=== PATIENT | female | born 1950 | race Caucasian/White ===

== ENCOUNTER 2018-12-31 08:42 | Inpatient (IN) ==
--- NOTE | 2018-12-05 11:16 | PAT Medication Instructions ---
Medication Instructions Date of Service December 05, 2018 Home Medications ascorbic acid (vitamin C) 250 mg PO QAM calcium carbonate [Calcium 500] 1,500 mg PO DAILY meloxicam 15 mg PO HS metronidazole 1 applic TOPICAL DAILY PRN potassium gluconate 595 mg PO QAM pyridoxine (vitamin B6) 50 mg PO QAM ranitidine HCl 150 mg PO BID triamcinolone acetonide 1 applic TOPICAL DAILY PRN vitamin B complex 1 cap PO QDL [Multivitamin 50 Plus] 1 tab PO BID ASK your surgeon for instructions meloxicam 15 mg PO HS STOP taking 24 hours before surgery triamcinolone acetonide 1 applic TOPICAL DAILY PRN DO NOT take the morning of surgery ascorbic acid (vitamin C) 250 mg PO QAM calcium carbonate [Calcium 500] 1,500 mg PO DAILY potassium gluconate 595 mg PO QAM pyridoxine (vitamin B6) 50 mg PO QAM vitamin B complex 1 cap PO QDL [Multivitamin 50 Plus] 1 tab PO BID Take morning of surgery With a small sip of water, OTHERWISE NOTHING TO EAT OR DRINK AFTER MIDNIGHT: ranitidine HCl 150 mg PO BID Other Notes If you have any questions please call us at [phone] or [phone] or [phone] or [phone]
--- NOTE | 2018-12-05 12:00 | Anesthesiology Consultation ---
Date of Service December 05, 2018 Assessment & Plan (1) Encounter for pre-operative examination: - No previous anesthesia records. Chart Review Chart Review: Acceptable Risk for Surgery and Patient seen in Pre Admission Testing Consults Requested medical (Tina Donis PA-C (12/22)) Patient was seen by PCPs office for preoperative evaluation on 12/22/18. Per note from visit that day, patient is "Clinically stable for surgery". Teaching & Discussion Pre-Anesthesia Teaching/Discussion Notes: Instructed NPO after midnight before surgery, except medications with 15 cc of water. Medication instructions provided according to the PAT guidelines. History Surgery Operation Date: 12/31/18 07:30 Proposed Procedures p Left Total Knee Arthroplasty - Chilo Chu MD Height/Weight Height: 5 ft 5 in Weight: 82.9 kg Allergies Allergy/AdvReac Type Severity Reaction Status Date / Time No Known Allergies Allergy Verified 11/26/18 08:35 Medications Home Medications Medication Instructions Recorded Confirmed Last Taken ascorbic acid (vitamin C) [Vitamin 250 mg PO QAM 09/11/18 11/26/18 Unknown C] calcium carbonate [Calcium 500] 1,500 mg PO DAILY 09/11/18 11/26/18 Unknown meloxicam 15 mg PO HS 09/11/18 11/26/18 Unknown metronidazole 1 applic TOPICAL DAILY PRN 09/11/18 11/26/18 Unknown potassium gluconate 595 mg PO QAM 09/11/18 11/26/18 Unknown pyridoxine (vitamin B6) [Vitamin 50 mg PO QAM 09/11/18 11/26/18 Unknown B-6] ranitidine HCl 150 mg PO BID 09/11/18 11/26/18 Unknown triamcinolone acetonide 1 applic TOPICAL DAILY PRN 09/11/18 11/26/18 Unknown vitamin B complex 1 cap PO QDL 09/11/18 11/26/18 Unknown [id number] 1 tab PO BID 11/26/18 11/26/18 Unknown [Multivitamin 50 Plus] Past Medical History Medical History Acid reflux History of kidney stones Osteoarthritis Rosacea Exercise / Class Metabolic Activity II 4-5 Yardwork/Stairs/Walk up hill (Helping redo bathroom and can cut grass. Able to climb FOS. Denies CP or SOB.) Past Family History Family History Father Family history of bladder cancer Aunt Family history of breast cancer Other Family history of prostate cancer in father Past Surgical History Surgical History History of colonoscopy History of laparoscopic cholecystectomy History of urologic surgery LASER KIDNEY STONE Past Anesthesia History No Hx of Anesthesia Complications and No Family Hx of Anesthesia Complications History of PONV No Hx of PONV and No Hx of Motion Sickness Social History Smoking Status: Never smoker Do You Dip or Chew Tobacco: No Hx Alcohol Use: No Hx Substance Use: No substance use type: does not use Review of Systems Patient denies chest pain, shortness of breath, dyspnea on exertion, cough, wheezing, palpitations. +Joint Pain (Knees, right arm) +Acid reflux (controlled with current medications) +Heart palpitations (caffeine related) Physical Exam Vital Signs BP: 149/79 P: 69 R: 18 T: 98.0 SPO2: 97% on RA ENMT Thyromental Distance: > or= 3.5 Finger Breadths (4) Mallampati Class: II Neck normal visual inspection and trachea midline; neck extension not limited Respiratory normal respiratory effort Auscultation: lungs clear to auscultation bilaterally Cardiovascular Rate/Rhythm: regular rate and regular rhythm Heart Sounds: no murmur Vessels: no carotid bruit Neurologic moves all extremities Psychiatric Orientation: alert and oriented x 3 Testing Laboratory Results 12/05/18 12:17 12/05/18 12:17 PT 11.0 Seconds (9.0-12.0) 12/05/18 12:17 INR 1.1 (0.9-1.1) 12/05/18 12:17 APTT 28.1 Seconds (21.0-31.0) 12/05/18 12:17 Hemoglobin A1c 5.9 % (4.5-5.6) H 12/05/18 12:17 Urine Color Yellow 12/05/18 12:17 Urine Appearance Clear (Clear) 12/05/18 12:17 Urine pH 7.5 (4.5-7.5) 12/05/18 12:17 Ur Specific Boles 1.023 (1.000-1.030) 12/05/18 12:17 Urine Protein Negative (Negative) 12/05/18 12:17 Urine Glucose (UA) Negative (Negative) 12/05/18 12:17 Urine Ketones Negative (Negative) 12/05/18 12:17 Urine Nitrite Negative (Negative) 12/05/18 12:17 Ur Leukocyte Esterase Negative (Negative) 12/05/18 12:17 Blood Type A Positive 12/05/18 12:17 Antibody Screen NEGATIVE 12/05/18 12:17 Electrocardiogram Date: 12/05/18 Findings: + SB @ (56) Chest X-Ray Date: 12/05/18 Findings: + NAD
--- NOTE | 2018-12-05 12:47 | XRay Report ---
XR chest Pre-admission PA/Lat CLINICAL HISTORY: Preoperative chest COMPARISON STUDY: No previous studies for comparison. FINDINGS: The cardiac and mediastinal contours are normal. There is no evidence of focal pulmonary co nsolidation. There is no evidence of failure. No pleural effusions are visualized.[ IMPRESSION: No active disease in the chest. Electronically signed by: Jaciel Van M.D. 12/05/2018 12:45 PM
[2018-12-05 13:00] LABS: Basophils # (auto) 0.03 K/uL (0-0.2); Basophils % (auto) 0.5 %; Eosinophils # (auto) 0.03 K/uL (0-0.5); Eosinophils % (auto) 0.5 %; Hematocrit (blood only) 40.3 % (37-47); Hemoglobin 13.6 g/dL (12.0-16.0); Immature Granulocytes # (auto) 0.01 K/uL (0.00-0.02); Immature Granulocytes % (auto) 0.2 %; Lymphocytes # (auto) 1.65 K/uL (1.2-3.4); Lymphocytes % (auto) 26.6 %; Mean Corpuscular Hgb Conc 33.7 g/dL (32-36); Mean Corpuscular Volume 90.2 fL (80-100); Mean Platelet Volume 9.5 fL (7.4-10.4); Monocytes # (auto) 0.45 K/uL (0.11-0.59); Monocytes % (auto) 7.3 %; Neutrophils # (auto) 4.03 K/uL (1.4-6.5); Neutrophils % (auto) 64.9 %; Platelet Count 256 K/uL (130-400); RDW Coefficient of Variation 14.2 % (11.5-14.5); RDW Standard Deviation 46.9 fL (36.4-46.3); Red Blood Count 4.47 M/uL (4.2-5.4)
[2018-12-05 13:14] LABS: INR 1.1 (0.9-1.1); Partial Thromboplastin Time 28.1 Seconds (21.0-31.0)
[2018-12-05 13:15] LABS: Albumin Level 3.7 gm/dl (3.4-5.0); BUN Creatinine Ratio 31.6 (10-20); Calcium 9.3 mg/dl (8.5-10.1); Creatinine Clr Calc Pharmacy 69.9 ml/min; Est GFR (African American) 84.6; Potassium 3.9 mmol/L (3.5-5.1)
[2018-12-05 13:28] LABS: Estimated Average Glucose 123 mg/dl; Hemoglobin A1C 5.9 % (4.5-5.6)
[2018-12-05 13:34] LABS: Appearance Urine Clear (Clear); Bilirubin Urine Negative (Negative); Blood Urine Negative (Negative); Color Urine Yellow; Glucose Urine UA Negative (Negative); Ketones Urine Negative (Negative); Leukocyte Esterase Urine Negative (Negative); Nitrite Urine Negative (Negative); Protein Urine Negative (Negative); Specific Gravity Urine 1.023 (1.000-1.030); Urobilinogen Urine Negative (Negative); pH Urine 7.5 (4.5-7.5)
--- NOTE | 2018-12-31 00:39 | History and Physical Report ---
DATE OF ADMISSION: 12/31/2018 CHIEF COMPLAINT: Chronic left knee pain. HISTORY OF PRESENT ILLNESS: This is a 68-year-old female patient of Dr. Moser, complaining of chronic left knee pain, longstanding, now progressively getting worse. The patient has failed conservative treatment including anti-inflammatories and the use of a home exercise program. The patient has increased pain with weightbearing activities. Her pain does interfere with her activities of daily living. The patient has been diagnosed with end-stage osteoarthritis per clinical and radiographic exams and wishes to proceed with a left total knee arthroplasty. PAST MEDICAL HISTORY: Osteoarthritis, acid reflux, kidney stones, otherwise a healthy 68-year-old female. PAST SURGICAL HISTORY: Cholecystectomy, kidney stones. SOCIAL HISTORY: Nonsmoker, nondrinker. FAMILY HISTORY: Noncontributory. REVIEW OF SYSTEMS: Chronic left knee pain and instability. Otherwise, denies any shortness of breath, chest pain, nausea, vomiting or any other joint complaints. PHYSICAL EXAMINATION: GENERAL: Well-developed, well-nourished 68-year-old female in no acute distress. She is alert and oriented x3 and pleasant. HEENT: Normocephalic, atraumatic. Extraocular motions are intact. Pupils are equal and reactive to light. HEART: Regular rate and rhythm, no murmurs. LUNGS: Clear. ABDOMEN: Soft, nontender, bowel sounds present. EXTREMITIES: Left knee reveals a limited range of motion of 0-115 degrees. She has medial joint line tenderness with a varus deformity. She has 5/5 strength with pain. NEUROLOGIC: Neurovascularly, she is intact in the left lower extremity. DIAGNOSES: Left knee end-stage osteoarthritis, acid reflux, history of kidney stones. PLAN: The patient was advised of her diagnosis. Indications, risks, benefits, postop course have all been reviewed. The patient wished to proceed with a left total knee arthroplasty. Necessary consent forms, preoperative testing and clearances will be obtained.
[~2018-12-31 08:42] MED LIST: ACETAMINOPHEN 500 MG TAB PO SCH; ATROPINE SULFATE 0.1 MG/ML 10ML SYR IV PRN; BUPIVACAINE 0.5 % 5 MG/1 ML PF 10ML VIAL ONE; CEFAZOLIN 2000MG 2,000 MG/15 ML SYR IV SCH; CeleBREX 200 MG CAP PO SCH; FAMOTIDINE 20 MG TAB PO SCH; GABAPENTIN 300 MG CAP PO SCH; LR 500ML BOLUS, THEN 15ML/HR IV SCH; METOCLOPRAMIDE HCL 10 MG TABLET PO SCH; MIDAZOLAM HCL 1 MG/ML 2ML VIAL ONE; ONDANSETRON INJ 2 MG/ML 2 ML VIAL IV PRN; ROPIVACAINE 0.5% 5 MG/ML 30 ML VIAL ONE; ROPIVACAINE 0.5% HCL/PF 150 MG, BUPIVACAINE 0.5% MPF 30 ML, EPINEPHrine 30MG/30ML (OR U... INSTIL SCH; TRANEXAMIC ACID 1,000 MG **IV Intra-op IV SCH; TRANEXAMIC ACID 1,000 MG **IV Pre-op IV SCH; dexAMETHasone 4 MG TAB PO SCH; ePHEDrine sulfate 50 MG/ML AMP IV PRN; fentaNYL citrate 100 MCG/2 ML VIAL IV PRN; fentaNYL citrate 100 MCG/2 ML VIAL ONE
--- NOTE | 2018-12-31 09:40 | History & Physical Bridge Note ---
Date of Service December 31, 2018 History & Physical Bridge Note I have examined the patient, reviewed the History & Physical and in the interval since the performance of the History & Physical I have noted the following changes of clinical significance: no changes noted
[2018-12-31] MEDS ORDERED: PROPOFOL IV EMULSION 10 MG/ML 20 ML VIAL IV ONE (11:52)
[2018-12-31] MEDS ORDERED: ONDANSETRON INJ 2 MG/ML 2 ML VIAL ONE (11:52)
[2018-12-31] MEDS ORDERED: LIDOCAINE HCL 2% 2 ML VIAL/AMP(20MG/ML) INFIL ONE (11:52)
[2018-12-31] MEDS ORDERED: ORTHO JOINT ANESTHETIC ONE (12:16)
[2018-12-31] MEDS ORDERED: BACITRACIN INJ 50,000 UNIT VIAL ONE (12:16)
--- NOTE | 2018-12-31 13:54 | Post Operative Brief Note ---
Immediate Post Op Note v1 Date of Surgery December 31, 2018 Pre & Post Diagnosis Operation Date: 12/31/18 11:20 Pre-Op Diagnosis: Left Knee Osteoarthritis Post-Op Diagnosis: Left Knee Osteoarthritis Procedure Operation Date: 12/31/18 11:20 Actual Procedures p Left Total Knee Arthroplasty(Left) - Chilo Chu MD Surgeon Chilo Chu MD Fiberglass Grinder Leo BOURGEOIS Estimated Blood Loss 5 Findings Consistent with Post-Op Diagnosis Specimens Bone cuts Drains Hemovac Drain (dual trocar) Anesthesia Type MAC Spinal Regional Complications none Disposition Accompanied Patient To Recovery: No Disposition: Recovery Room Overlapping Procedure I was immediately available: during the entire case.
--- NOTE | 2018-12-31 14:12 | Operative Report ---
Post Operative Report Pre & Post Diagnosis Operation Date: 12/31/18 11:20 Pre-Op Diagnosis: Left Knee Osteoarthritis Post-Op Diagnosis: Left Knee Osteoarthritis Procedure Operation Date: 12/31/18 11:20 Actual Procedures p Left Total Knee Arthroplasty(Left) - Chilo Chu MD Surgeon Chilo Chu MD Operations Research Manager Leo BOURGEOIS Estimated Blood Loss 5 Findings Consistent with Post-Op Diagnosis Specimens Bone cuts Drains 2 Hemovac Anesthesia Type MAC Spinal Regional Complications none Disposition Accompanied Patient To Recovery: No Disposition: Recovery Room Indications 68-year-old female with chronic left knee pain failed conservative management. Radiographs demonstrate that she is lyxy-ln-jpha medial compartment and flexion views she is kqbz-[id number] patellofemoral joint medial compartment. Patient had extensive conservative management without relief. Description of Procedure Patient taken to the operating room the size under spinal MAC regional block anesthesia. Patient was placed supine on the operating table. A pneumatic tourniquet was placed about the left upper thigh. The left lower extremity was prepped and draped in sterile fashion. Knee exam demonstrated good range of motion patellofemoral crepitation no instability varus knee alignment. The leg was elevated exsanguinated with an Esmarch bandage and pneumatic tourniquet was raised to 325 millimeters of mercury. Skin incised sharply in longitudinal fashion. Subcutaneous flaps elevated. Incision was made through the medial retinaculum extending up in the mid third of the quadriceps tendon and down to the medial tibial tubercle. Intra-articular findings demonstrated tricompartmental osteoarthritis. There is grade 4 medial compartment OA there was grade 3-4 chondral lesion lateral femoral condyle there was grade 4 patellofemoral osteoarthritis in the medial compartment patellofemoral joint medial facet patella. The Turbogen triathlon total knee arthroplasty system was used. To expose the knee the infrapatellar fat pad was resected. The meniscal remnants and cruciate ligaments were resected. The anterior fat pad over the femur in the area of the anterior flange of the femoral component was resected. Lateral synovial bands release. The femur was exposed. An intramedullary drill hole was made into the canal. A guide jarod was placed. Distal femoral cutting guide was adjusted to resect a 5 degree valgus cut with a millimeters distal femur resected. The knee was extended and a subperiosteal peel lateral release was performed around the patella. Patella width was measured and width was reproduced using a freehand cut technique and a 33 x 9 patella component. The 3 drill holes were made and the excess lateral facet was beveled off to prevent any impingement. Attention was taken back to the femur which was exposed with retractors and the femoral sizing guide was pinned in position. The drill holes were placed in 3 of external rotation to match epicondylar axis. In order not to notch we used a +1.5 mm adjustment guide placing the cutting guide more anterior. Femur sized for a 4 component. The 4-in-1 cutting block was placed and then the anterior posterior and chamfer cuts are made. The tibia was then subluxed. The external tibial cutting guide was just to make a perpendicular cut to the long axis of the tibia below the most deficient bone loss side. A lamina store consultant was used and the flexion extension gaps were balanced. All posterior osteophytes removed. All meniscal remnants were resected. The tibia exposed and the trial tibial component size 3 was externally rotated in line with the tibial tubercle and pinned in position. The punch for stem was used. The notch cutting device was centered appropriately and the femoral notch cut was made. The femoral trial was inserted. Trial tibial inserts were placed and size 11 gave balanced ligaments through flexion and extension. Patella tracking was assessed. The patella tracked centrally. The trial components were then removed and the orthomix anesthetic cocktail was injected per protocol. The knee was then copiously irrigated with pulsatile lavage antibiotic solution. Final components were then cemented with Simplex cement. Final components were Julianne triathlon size 4 left posterior stabilized femoral component, 3 primary tibial baseplate, 3 x 11 mm X3 polyethylene tibial insert, X3S 33 x 9 mm symmetrical patella. While the cement cured the Betadine soak was used per protocol. After cement cured further pulsatile lavage irrigation performed and 2 Hemovac drains were brought out laterally. The quadriceps tendon and medial retinaculum were closed with figure of 8 #1 Vicryl sutures. The knee was taken through full range of motion and the repair was secure. The subcutaneous tissues were closed with 2-0 Vicryl sutures. Skin was closed with curly. Sterile dressings were applied. Patient procedure well. Leo BOURGEOIS was my physician mortgage assistant who assisted in patient positioning prepping and draping,leg positioning ,soft tissue retraction and instrument management and participated in the closing and will participate in postoperative care of the patient. The patient tolerated the procedure well. I attest to the content of the Intraoperative Record and any orders documented therein. Any exceptions are noted below.
--- NOTE | 2018-12-31 14:40 | XRay Report ---
LEFT KNEE 2 VIEWS History: Left total knee arthroplasty. Degenerative arthritis. Postop. FINDINGS: The patient is status post a left total knee arthroplasty. The hardware is intact. No fract ure or dislocation. Skin curly and surgical drains are in place. IMPRESSION: Left total knee arthroplasty. No evidence for hardware complication. Electronically signed by: Logan Oliveira M.D. 12/31/2018 2:39 PM
--- NOTE | 2018-12-31 16:51 | Anesthesiology Progress Note ---
Date of Service December 31, 2018 Anesthesia Post Procedure Vital Signs Vital Signs: Temp Pulse Pulse Resp BP Pulse Ox 12/31/18 16:20 36.3 C L 67 17 120/54 L 98 12/31/18 16:10 73 14 124/53 L 99 12/31/18 16:00 71 17 119/67 97 12/31/18 15:50 85 15 121/81 99 12/31/18 15:40 69 17 109/62 99 12/31/18 15:30 36.6 C 76 18 120/68 99 12/31/18 15:20 69 20 105/62 98 12/31/18 15:10 65 12 108/55 L 99 12/31/18 15:00 67 15 102/54 L 100 12/31/18 14:50 63 17 108/47 L 99 12/31/18 14:40 65 16 118/49 L 98 12/31/18 14:30 65 13 106/56 L 99 12/31/18 14:20 72 22 113/59 L 98 12/31/18 14:10 72 16 111/52 L 100 12/31/18 14:00 36.5 C 81 18 122/54 L 100 12/31/18 09:29 36.7 C 71 16 154/64 H 98 Transfer of Care Handoff Completed per policy Notes Mental Status: alert / awake / arousable Patient Amnestic to Procedure: Yes Nausea / Vomiting: adequately controlled Pain: adequately controlled Airway Patency, RR, SpO2: stable & adequate BP & HR: stable & adequate Hydration State: stable & adequate Neuraxial Anesthesia: was administered and sensory block is resolving Anesthetic Complications: no major complications apparent and Pt Satisfied with anesthetic care
[2018-12-31] MEDS ORDERED: TRIAMCINOLONE ACET 0.1% OINT 15 GM TUBE TOP PRN (17:02)
[2018-12-31] MEDS ORDERED: HYDROmorphone INJ 0.5 MG/0.5 ML SYR IV PRN (17:02)
[2018-12-31] MEDS ORDERED: BISACODYL 10 MG SUPP PR PRN (17:02)
[2018-12-31] MEDS ORDERED: NALOXONE HCL 0.4 MG/1 ML VIAL/CARP IV PRN (17:02)
[2018-12-31] MEDS ORDERED: MAGNESIUM HYDROXIDE SUSP 30 ML UDC PO PRN (17:02)
[2018-12-31] MEDS ORDERED: ONDANSETRON INJ 2 MG/ML 2 ML VIAL IV PRN (17:02)
[2018-12-31] MEDS: ACETAMINOPHEN 500 MG TAB PO SCH (17:36)
[2018-12-31] MEDS: SODIUM CHLORIDE 0.9% 1000ML 1,000 ML IV SCH (17:41)
--- NOTE | 2018-12-31 19:38 | Consultation ---
Date of Consultation December 31, 2018 Assessment & Plan (1) Arthritis of knee: left, s/p TKR today. Resting comfortably post-op. Defer pain control, fluids, dispo to orthopedics. DVT proph- asa 81mg BID. Present on Admission?: Yes (2) Prediabetes: a1c on 12/05/18 was 5.9%. I counseled her on significance of this. Random blood sugar taken at 1930 tonight was nearly 180. Some of the elevation is likely due to steroids given earlier today in the setting of her pre-DM. Change diet to DM diet. Check BSGs ac/hs. Just changing diet alone may control the BSGs. Will add loose coverage of novolog as well. Present on Admission?: Yes (3) Acid reflux: Cont ranitidine 150mg BID. No symptoms at this time. Present on Admission?: Yes (4) DVT prophylaxis: It appears orthopedics has chosen aspirin 81mg twice daily. Thank you for this consult. We will follow with you. History of Present Illness Requesting Physician: Dr Chilo Chu Reason for Consultation: post-op medical management Attending Physician: Chilo Chu MD History of Present Illness 68yo remale with h/o atopic dermatitis, GERD, osteoarthritis of various sites, and rosacea who presented today for elective right TKR. She underwent this procedure earlier today by Dr Chu and her surgery went well & without complications. She was resting comfortably on the orthopedic floor during my assessment. Her main pre-hospital complaint was that of plantar fascitis and b/l wrist pain. Since stopping her meloxicam 1 week before the operation her wrist pain had been worse. Denies chest pain, dyspnea, abd pain, nausea or emesis. Ate dinner tonight without incident. Random BSG at 1930 was 179. Allergies Allergy/AdvReac Type Severity Reaction Status Date / Time No Known Allergies Allergy Verified 12/31/18 09:25 Home Medications Home Medications Medication Instructions Recorded Confirmed Type ascorbic acid (vitamin C) [Vitamin 250 mg PO QAM 09/11/18 12/31/18 History C] calcium carbonate [Calcium 500] 1,500 mg PO DAILY 09/11/18 12/31/18 History meloxicam 15 mg PO HS 09/11/18 12/31/18 History metronidazole 1 applic TOPICAL DAILY PRN 09/11/18 12/31/18 History potassium gluconate 595 mg PO QAM 09/11/18 12/31/18 History pyridoxine (vitamin B6) [Vitamin 50 mg PO QAM 09/11/18 12/31/18 History B-6] ranitidine HCl 150 mg PO BID 09/11/18 12/31/18 History triamcinolone acetonide 1 applic TOPICAL DAILY PRN 09/11/18 12/31/18 History vitamin B complex 1 cap PO QDL 09/11/18 12/31/18 History tmzrrmwbkpuu-fjudqjqa-pkzxlx 1 tab PO BID 11/26/18 12/31/18 History [Multivitamin 50 Plus] Patient History Medical History Acid reflux (Chronic) Prediabetes (Chronic) History of kidney stones Osteoarthritis Rosacea Surgical History History of colonoscopy History of laparoscopic cholecystectomy History of urologic surgery LASER KIDNEY STONE Family History Father Family history of bladder cancer Heart disease CAD, s/p CABG; age 69 Aunt Family history of breast cancer Mother , age 97 Valvular heart disease Other Family history of prostate cancer in father Social History Preferred Language: Lao Communication Ability: Effective Supervisor Boarding Required: No Beliefs That Will Affect Care: None marital status: Current Living Situation: Spouse Current Living Situation Comment: lives in [place] current occupational status: retired 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 Other Information That Helps Us Care for You: No Feels Safe at Home: Yes Safety Concerns: Feels Safe At This Time Smoking Status: Never smoker Do You Dip or Chew Tobacco: No Second Hand Exposure: No Hx Alcohol Use: No Hx Substance Use: No Review of Systems Constitutional: no fever, no chills and no anorexia Ear, Nose, Mouth, Throat: + sore throat (post-op only); no dysphagia Respiratory: no cough and no dyspnea Cardiovascular: no chest pain Gastrointestinal: no abdominal pain, no nausea and no vomiting Genitourinary: no hematuria Musculoskeletal: as per Subjective / HPI and + joint pain Integumentary: + rash (atopic derm rashes at times) Neurologic: + numbness (left leg - from operative block) Psychiatric: no depression Endocrine: pre-DM - she was not aware of such Physical Exam Constitutional: well developed, well nourished and average body habitus; no acute distress and no altered mental status Eyes: PERRL ENMT: external ear and nose normal, oropharynx normal Respiratory: normal respiratory effort, lungs clear to auscultation Cardiovascular: Rate/Rhythm: regular rate and regular rhythm Heart Sounds: normal S1, normal S2 and + murmur (1/6 LLSB) Vessels: posterior tibial pulses present and brachial pulses present; no JVD Extremities: no edema Gastrointestinal (Abdomen): normal bowel sounds, soft, nontender, no hepatosplenomegaly Musculoskeletal: left knee with ice pack in place and RASHEL wrap Skin: no rashes, warm and dry Neurologic: no focal motor deficits Psychiatric: A+Ox3, euthymic affect Lymphatic: no cervical lymphadenopathy Results & Data Vital Signs (Past 12 Hours) Vital Signs Temp Pulse Pulse Resp BP Pulse Ox 12/31/18 18:47 83 17 131/75 97 12/31/18 17:45 37 C 78 18 137/81 95 12/31/18 17:15 36.4 C L 65 16 126/80 98 12/31/18 16:45 36.9 C 68 16 114/71 100 12/31/18 16:20 36.3 C L 67 17 120/54 L 98 12/31/18 16:10 73 14 124/53 L 99 12/31/18 16:00 71 17 119/67 97 12/31/18 15:50 85 15 121/81 99 12/31/18 15:40 69 17 109/62 99 12/31/18 15:30 36.6 C 76 18 120/68 99 12/31/18 15:20 69 20 105/62 98 12/31/18 15:10 65 12 108/55 L 99 12/31/18 15:00 67 15 102/54 L 100 12/31/18 14:50 63 17 108/47 L 99 12/31/18 14:40 65 16 118/49 L 98 12/31/18 14:30 65 13 106/56 L 99 12/31/18 14:20 72 22 113/59 L 98 12/31/18 14:10 72 16 111/52 L 100 12/31/18 14:00 36.5 C 81 18 122/54 L 100 12/31/18 09:29 36.7 C 71 16 154/64 H 98 Laboratory Results 12/05/18 - CBC, BMP wnl HbA1c 5.9% Diagnostic Findings cxr - earlier this month - no acute process EKG - sinus doug, no ST changes PG Care Time/CCT Total # of Minutes Spent Total Time Spent with Patient: Total time spent is greater than 50% in coordination of care (as documented) at patient's floor/unit and/or counseling patient: (1) Acid reflux Esophagitis presence: esophagitis presence not specified Qualified Code(s): K21.9 - Gastro-esophageal reflux disease without esophagitis
[2018-12-31] MEDS: CEFAZOLIN 2000MG 2,000 MG/15 ML SYR IV SCH (20:24)
[2018-12-31] MEDS: ASPIRIN 81 MG ECTAB PO SCH (20:24)
[2018-12-31] MEDS: DOCUSATE SODIUM 100 MG CAP PO SCH (20:24)
[2018-12-31] MEDS: SENNA 8.6 MG TAB PO SCH (20:24)
[2018-12-31] MEDS: CeleBREX 200 MG CAP PO SCH (20:39)
[2018-12-31] MEDS ORDERED: MULTIVITAMIN MINERALS LUTEIN PO SCH (21:00)
[2019-01-01] MEDS: OXYCODONE HCL IR 5 MG TAB (IMMEDIATE RELEASE) PO PRN ×5 (00:46→21:55)
[2019-01-01] MEDS: ACETAMINOPHEN 500 MG TAB PO SCH ×3 (02:11→18:02)
[2019-01-01] MEDS: CEFAZOLIN 2000MG 2,000 MG/15 ML SYR IV SCH (04:29)
[2019-01-01] MEDS: SODIUM CHLORIDE 0.9% 1000ML 1,000 ML IV SCH (04:31)
[2019-01-01 06:43] LABS: Hematocrit (blood only) 34.1 % (37-47); Hemoglobin 11.6 g/dL (12.0-16.0); Mean Corpuscular Volume 87.9 fL (80-100); Mean Platelet Volume 9.1 fL (7.4-10.4); Platelet Count 199 K/uL (130-400); RDW Coefficient of Variation 13.9 % (11.5-14.5); Red Blood Count 3.88 M/uL (4.2-5.4); White Blood Count 13.21 K/uL (4.8-10.8)
[2019-01-01 07:21] LABS: BUN Creatinine Ratio 25.4 (10-20); Calcium 8.2 mg/dl (8.5-10.1); Est GFR (African American) 78.8; Potassium 4.3 mmol/L (3.5-5.1)
--- NOTE | 2019-01-01 08:07 | Orthopedic Progress Note ---
Date of Service January 01, 2019 Assessment & Plan (1) Total knee replacement status: Status post total knee replacement left knee expected progress. PT pain management and planning on home health home PT for 2 weeks then outpatient physical therapy Subjective No complaints doing well Physical Exam Physical Exam: Mild weakness left foot improving with nerve block wearing off otherwise CSM intact. Dressing dry and intact. Results & Data Vital Signs (Past 12 Hours) Vital Signs Temp Pulse Resp BP Pulse Ox 01/01/19 06:56 36.4 C L 62 18 136/76 96 01/01/19 03:50 36.4 C L 64 16 120/72 95 12/31/18 23:13 36.8 C 68 16 126/70 94
[2019-01-01] MEDS: CeleBREX 200 MG CAP PO SCH ×2 (08:41→20:13)
[2019-01-01] MEDS: ASCORBIC ACID 500 MG TAB PO SCH (08:41)
[2019-01-01] MEDS: DOCUSATE SODIUM 100 MG CAP PO SCH ×2 (08:41→20:12)
[2019-01-01] MEDS: MULTIVITAMIN TAB PO SCH (08:42)
[2019-01-01] MEDS: ASPIRIN 81 MG ECTAB PO SCH ×2 (08:42→20:13)
[2019-01-01] MEDS: PYRIDOXINE HCL 50 MG TAB PO SCH (08:42)
[2019-01-01] MEDS: CALCIUM CARBONATE 1250MG TAB PO SCH (08:42)
--- NOTE | 2019-01-01 10:57 | Hospitalist Progress Note ---
Date of Service January 01, 2019 Assessment & Plan (1) Arthritis of knee: left, s/p TKR, POD #1. Stable labs, acceptable vitals, and BSGs improving. Defer pain control and dispo to orthopedics. DVT proph- asa 81mg BID. (2) Prediabetes: a1c on 12/05/18 was 5.9%. I counseled her on significance of this. Some of the elevation was likely due to steroids given pre-op. Her BSGs have improved with time and changing her diet to T2DM diet. If BSGs continue to drop to normal range can d/c ac/hs checks. I offered for her to be seen by health lead for nutritional counseling, etc -- she was agreeable. Consult placed. (3) Acid reflux: Cont ranitidine 150mg BID. (4) Acute blood loss anemia: Mild, would start Ferrous sulfate at d/c (325mg BID x 1-2 months). (5) DVT prophylaxis: aspirin 81mg twice daily. Patient has not passed flatus or stool but has no symptoms/signs of ileus. Simply continue bowel regimen. Patient medically quite stable. Will sign off for now. Please re-consult if needed. Subjective pt slept poorly last pm because of knee pain. she otherwise denies cp, dyspnea, abd pain. no flatus or stool yet but eating fine. worked well with PT. Review of Systems Constitutional: no fever Respiratory: no cough and no dyspnea Cardiovascular: no chest pain Gastrointestinal: no abdominal pain, no nausea and no vomiting Physical Exam Constitutional: well developed and well nourished; no acute distress ENMT: external ear and nose normal, oropharynx normal Respiratory: normal respiratory effort, lungs clear to auscultation Cardiovascular: Rate/Rhythm: regular rate and regular rhythm Heart Sounds: normal S1 and normal S2; no murmur Vessels: posterior tibial pulses present and dorsalis pedis pulses present; no JVD Extremities: + edema (left ankle - <1+) Gastrointestinal (Abdomen): normal bowel sounds, soft, nontender, no hepatosplenomegaly Musculoskeletal: left knee dressings intact; drain in place Results & Data Vital Signs (Past 12 Hours) Vital Signs Temp Pulse Resp BP BP Pulse Ox 01/01/19 10:27 37.0 C 71 18 118/68 97 01/01/19 06:56 36.4 C L 62 18 136/76 96 01/01/19 03:50 36.4 C L 64 16 120/72 95 12/31/18 23:13 36.8 C 68 16 126/70 94 Laboratory Results Laboratory Results - last 24 hr 12/31/18 12/31/18 01/01/19 19:28 20:35 06:30 WBC 13.21 H RBC 3.88 L Hgb 11.6 L Hct 34.1 L MCV 87.9 MCH 29.9 MCHC 34.0 RDW Std Deviation 45.0 RDW Coeff of Ananth 13.9 Plt Count 199 MPV 9.1 Sodium Potassium Chloride Carbon Dioxide Anion Gap BUN Creatinine Est Cr Clr Drug Dosing Est GFR ( Amer) Est GFR (Non-Af Amer) BUN/Creatinine Ratio Glucose POC Glucose 179 H 159 H Calcium 01/01/19 01/01/19 06:30 08:20 WBC RBC Hgb Hct MCV MCH MCHC RDW Std Deviation RDW Coeff of Ananth Plt Count MPV Sodium 142 Potassium 4.3 Chloride 111 H Carbon Dioxide 26 Anion Gap 4.0 BUN 22 H Creatinine 0.88 Est Cr Clr Drug Dosing 66.0 Est GFR ( Amer) 78.8 Est GFR (Non-Af Amer) 68.0 BUN/Creatinine Ratio 25.4 H Glucose 117 H POC Glucose 115 H Calcium 8.2 L PG Care Time/CCT Total # of Minutes Spent Total Time Spent with Patient: Total time spent is greater than 50% in coordination of care (as documented) at patient's floor/unit and/or counseling patient: (1) Acid reflux Esophagitis presence: esophagitis presence not specified Qualified Code(s): K21.9 - Gastro-esophageal reflux disease without esophagitis
[2019-01-01] MEDS: VITAMIN B COMPLEX TAB PO SCH (12:41)
[2019-01-01] MEDS: SENNA 8.6 MG TAB PO SCH (20:12)
[2019-01-02] MEDS: ACETAMINOPHEN 500 MG TAB PO SCH ×2 (01:48→09:49)
[2019-01-02 05:56] LABS: Hematocrit (blood only) 32.9 % (37-47); Hemoglobin 11.1 g/dL (12.0-16.0); Mean Corpuscular Hgb Conc 33.7 g/dL (32-36); Mean Corpuscular Volume 89.2 fL (80-100); Mean Platelet Volume 9.3 fL (7.4-10.4); Platelet Count 201 K/uL (130-400); RDW Coefficient of Variation 14.4 % (11.5-14.5); RDW Standard Deviation 47.5 fL (36.4-46.3); Red Blood Count 3.69 M/uL (4.2-5.4); White Blood Count 7.58 K/uL (4.8-10.8)
[2019-01-02 06:35] LABS: BUN Creatinine Ratio 26.4 (10-20); Calcium 8.4 mg/dl (8.5-10.1); Creatinine Clr Calc Pharmacy 62.4 ml/min; Est GFR (African American) 73.7; Est GFR (Non-African American) 63.6
--- NOTE | 2019-01-02 07:24 | Orthopedic Progress Note ---
Date of Service January 02, 2019 Assessment & Plan (1) Total knee replacement status: POD #2 Left TKA PT/ OT DVT proph- ASA D/C planning- Home w HH As per medicine. Subjective POD #2, doing well, denies SOB, CP, N/V, pain controlled well. Physical Exam Physical Exam: Left knee silverlon dressing c/d/i, no drainage, no calf tenderness, toes/ ankle mobile, A&Ox3. Results & Data Vital Signs (Past 12 Hours) Vital Signs Temp Pulse Resp BP BP Pulse Ox 01/02/19 06:36 36.6 C 66 16 127/76 95 01/01/19 23:21 36.8 C 73 16 116/69 96
[2019-01-02] MEDS: OXYCODONE HCL IR 5 MG TAB (IMMEDIATE RELEASE) PO PRN ×2 (07:25→15:33)
[2019-01-02] MEDS: ASPIRIN 81 MG ECTAB PO SCH (07:26)
[2019-01-02] MEDS: CeleBREX 200 MG CAP PO SCH (07:27)
[2019-01-02] MEDS: CALCIUM CARBONATE 1250MG TAB PO SCH (07:27)
[2019-01-02] MEDS: ASCORBIC ACID 500 MG TAB PO SCH (07:28)
[2019-01-02] MEDS: MULTIVITAMIN TAB PO SCH (07:28)
[2019-01-02] MEDS: PYRIDOXINE HCL 50 MG TAB PO SCH (07:28)
[2019-01-02] MEDS: DOCUSATE SODIUM 100 MG CAP PO SCH (07:31)
[2019-01-02] MEDS ORDERED: metroNIDAZOLE 0.75% TOPICAL GEL 45 GM TUBE TOP SCH (09:00)
[2019-01-02] MEDS: VITAMIN B COMPLEX TAB PO SCH (12:15)
--- NOTE | 2019-01-14 03:54 | Discharge Summary ---
HISTORY OF PRESENT ILLNESS: This is a 68-year-old female patient of Dr. Chu's complaining of chronic left knee pain, longstanding, now progressively getting worse. The patient failed conservative treatment and elected to proceed with a left total knee arthroplasty. PAST MEDICAL HISTORY: Osteoarthritis, acid reflux, kidney stones, otherwise a healthy 68-year-old female. POSTOPERATIVE COURSE: The patient underwent a left total knee arthroplasty on 12/31/2018. She was followed closely with medical consultation, DVT prophylaxis in the form of aspirin and physical therapy and pain control. The patient did well postoperatively and was discharged home on postoperative day #2. PHYSICAL EXAMINATION: On discharge, left knee Silverlon dressing was clean, dry and intact. There was no redness or drainage. She had no calf tenderness. Negative Homans sign. Her toes and ankle were mobile. Neurologically and neurovascularly, she is intact in her left lower extremity. DIAGNOSES: Status post left total knee arthroplasty, osteoarthritis, acid reflux, kidney stones. PLAN: The patient was discharged home with home health services. She will continue her preadmission medications with the addition of pain medications and aspirin twice daily for DVT prophylaxis. The patient will follow up with Dr. Chu as scheduled as an outpatient.
== END 2019-01-02 18:10 | disposition home health service (06) | DRG 470 ==
LOC: ASU 08:42 → 3E 14:03